=== PATIENT | female | born 1960 | race Caucasian/White ===

== ENCOUNTER 2017-03-19 08:36 | Emergency (ER) | payer BC ==
[~2017-03-19] VITALS: Ht 167.6 cm; Wt 80.2 kg
[~2017-03-19 08:36] MED LIST: EFFEXOR25 MG PO; GLIMEPIRIDE4 MG PO; HYDROXYCHLOROQ200 MG PO; JANUVIA100 MG PO; METFORMIN HCL500 MG PO; PREDNISONE10 MG PO; PREDNISONE5 MG PO; RAYOS1 MG PO
[2017-03-19 10:59] LABS: EOSINOPHIL (%) 1.6 % (0-5); EOSINOPHIL COUNT 0.1 K/uL (0-0.3); HEMATOCRIT 41.8 % (36.0-46.0); IMMATURE GRANULOCYTE (%) 0.5 % (0.0-0.7); INSTRUMENT ABS NEUTROPHIL CT 5.3 K/uL; LYMPHOCYTE COUNT 2.2 K/uL (1.0-2.8); MCH 29.3 PG (29.0-34.0); MCV 88.7 FL (83-99); MEAN PLAT.VOLUME 9.8 uM^3 (9.5-12.4); MONOCYTE (%) 6.2 % (3-12); MONOCYTE COUNT 0.5 K/uL (0-0.8); NEUTROPHIL (%) 64.7 % (45-76); NEUTROPHIL COUNT 5.3 K/uL (1.8-6.4); PLATELET COUNT 208 K/uL (156-360); RBC DIS.WIDTH-CV 12.7 % (11.8-14.6); RBC DIS.WIDTH-SD 41.3 % (39-53); RED BLOOD COUNT 4.71 M/uL (3.80-5.20); WHITE BLOOD COUNT 8.1 K/uL (4.1-10.2)
[2017-03-19 11:04] LABS: PROTHROMBIN TIME 11.7 SEC (10.2-12.9)
[2017-03-19 11:08] LABS: CHLORIDE 103 mEq/L (99-109); POTASSIUM 4.2 mEq/L (3.7-5.4); SODIUM 139 mEq/L (136-147)
[2017-03-19 11:10] LABS: GLUCOSE 113 mg/dL (70-99)
[2017-03-19 11:11] LABS: ANION GAP 9 MEQ/L (2-14)
[2017-03-19 11:14] LABS: GFR ESTIMATE (CALCULATED) > 59 mL/min/
[2017-03-19 11:15] LABS: UREA NITROGEN (BUN) 15 mg/dL (9-23)
[2017-03-19 12:28] VITALS: BP 126/64
== END 2017-03-19 12:29 | disposition home or self-care (01) ==
LOC: EME 08:36
PROVIDERS: Emergency Medicine
PROC: 0W3Q7ZZ Control Bleeding in Respiratory Tract, Via Natural or Artificial Opening (ICD-10-PCS; principal; 2017-03-19)
DX: R04.0 Epistaxis (principal); M32.9 Systemic lupus erythematosus, unspecified; E11.9 Type 2 diabetes mellitus without complications; Z79.84 Long term (current) use of oral hypoglycemic drugs; Z88.0 Allergy status to penicillin
CPT/HCPCS: 80048; 85025; 85610; 99281; 99283